=== PATIENT | female | born 1960 | race Caucasian/White ===

== ENCOUNTER → 2016-12-12 | Outpatient (CLI) | payer BC ==
--- NOTE | 2016-12-12 15:07 | MAMMOGRAPHY REPORT ---
BILATERAL DIGITAL SCREENING MAMMOGRAM TOMOSYNTHESIS WITH CAD: 12/12/2016 CLINICAL HISTORY: Routine screening. Patient has no complaints. TECHNIQUE: Breast tomosynthesis in addition to standard 2D mammography was performed. Current study was also evaluated with a Computer Aided Detection (CAD) system. COMPARISON: Comparison is made to exams dated: 12/07/2015 mammogram, 12/01/2014 mammogram, 12/02/2013 ultrasound, 12/02/2013 mammogram, 11/29/2013 mammogram, and 12/03/2012 ultrasound - [facility]. BREAST COMPOSITION: The tissue of both breasts is heterogeneously dense, which may obscure small ma sses. FINDINGS: No suspicious masses, calcifications, or areas of architectural distortion are noted in e ither breast. There has been no significant interval change compared to prior exams. IMPRESSION: ACR BI-RADS CATEGORY 1: NEGATIVE There is no mammographic evidence of malignancy. A 1 year screening mammogram is recommended. The p atient will receive written notification of the results. Approximately 10% of breast cancers are not detected with mammography. A negative mammographic repor t should not delay biopsy if a clinically suggestive mass is present. Clara Ann M.D. ah/:12/12/2016 07:52:19 Seasoning Sprayer: Mayela CASSIDY(R)(M), [facility] letter sent: Normal 1/2 BI-RADS Code: ACR BI-RADS Category 1: Negative
== END | disposition home or self-care (01) ==
LOC: C.MAMM 07:22
PROVIDERS: ATTEND Nurse Practitioner Family
DX: Z12.31 Encounter for screening mammogram for malignant neoplasm of breast (principal)

== ENCOUNTER → 2017-02-25 | Outpatient (CLI) | payer BC ==
--- NOTE | 2017-02-25 17:57 | DIAGNOSTIC IMAGING REPORT ---
CHEST 2 VIEWS ROUTINE HISTORY: Cough. Short of breath. COMPARISON: Chest CT 12/25/2010. FINDINGS: The heart is normal in size. No pleural effusions. No pneumothorax. No focal lung consolidations to suggest pneumonia. No evidence for pulmonary edema. Bibasilar linear densities favor subsegmental atelectasis. Questionable interstitial thickening at the left lung base may be due to overlapping soft tissue. This is not confirmed on the lateral view. IMPRESSION: Bibasilar linear densities suggesting subsegmental atelectasis or scarring. No focal lung consolidations to suggest pneumonia. Electronically signed by: Roosevelt Rai M.D. 02/25/2017 5:56 PM Dictated Date/Time: 02/25/2017 5:51 PM
== END | disposition home or self-care (01) ==
LOC: C.RAD 17:33
PROVIDERS: ATTEND Nurse Practitioner Family
DX: R06.02 Shortness of breath (principal); R05 Cough; M54.9 Dorsalgia, unspecified

== ENCOUNTER → 2017-06-26 | Outpatient (CLI) | payer BC ==
--- NOTE | 2017-06-26 12:06 | DIAGNOSTIC IMAGING REPORT ---
RIGHT KNEE 4 VIEWS HISTORY: RIGHT KNEE PAIN COMPARISON: None. FINDINGS: There is no fracture or dislocation. No significant knee effusion. Soft tissues are unremarkable. Moderate cartilage space narrowing within the medial compartment of the right knee with small marginal osteophytes. Mild cartilage space narrowing within the medial compartment of the left knee. There is a lateral patellar tilt. No radiopaque foreign bodies. IMPRESSION: Moderate osteoarthritis within the medial compartment of the right knee. No fractures. Electronically signed by: Roosevelt Rai M.D. 06/26/2017 12:05 PM Dictated Date/Time: 06/26/2017 12:03 PM
== END | disposition home or self-care (01) ==
LOC: C.RDSM 12:05
PROVIDERS: ATTEND Family Medicine
DX: M17.11 Unilateral primary osteoarthritis, right knee (principal)